=== PATIENT | female | born 1995 | race Caucasian/White ===

== ENCOUNTER → 2019-08-01 | Outpatient (CLI) | payer OTHER ==
--- NOTE | 2019-08-01 15:52 | REP ---
REASON: Injury to the 4th digit of the right foot. Seen only on one view, there was a lucency in the middle phalanx. The exam is otherwise normal. IMPRESSION: Possible chronic lucency. This is seen only on one view. Electronically Signed by Eric Rosenberg DO 08/01/2019 05:05 P
== END ==
LOC: M LRY 14:09
PROVIDERS: ATTEND Physician Assistant
DX: S99.921A Unspecified injury of right foot, initial encounter (principal); X58.XXXA Exposure to other specified factors, initial encounter; Y92.9 Unspecified place or not applicable
CPT/HCPCS: 73660; G0463